=== PATIENT | male | born 2000 | race Caucasian/White ===

== ENCOUNTER 2024-03-28 08:56 | Emergency (ER) | payer SELFPAY ==
[~2024-03-28] VITALS: Ht 175.3 cm; Wt 100.0 kg
[~2024-03-28 08:56] MED LIST: AMOXICILLI250 MG/5 M PO; NO HOME MEDICATIONS
[2024-03-28 09:07] VITALS: TEMP 98.1
[2024-03-28] MEDS ORDERED: Ondansetron 4 MG/2 ML VIAL IV ONE (09:15)
[2024-03-28] MEDS ORDERED: NS 1,000 ML IV ONE (09:15)
[2024-03-28] MEDS ORDERED: fentaNYL 50 MCG/ML 2 ML VIAL IV ONE (09:30)
[2024-03-28] MEDS ORDERED: Ketorolac 30 MG/ML VIAL IV ONE (09:30)
[2024-03-28 09:39] LABS: BASO % 0.2 % (0.0-2.0); GRAN # 14.7 K/mm3 (1.4-6.5); GRAN % 88.5 % (42.2-75.2); HEMATOCRIT 48.5 % (42.0-52.0); HEMOGLOBIN 17.3 g/dl (13.5-18.0); LYMPH % 5.7 % (20.0-51.0); MEAN CELL VOLUME 84 fl (80.0-100.0); MEAN CORPUSCULAR HEMOGLOBIN 30 pg (27-31); MEAN CORPUSCULAR HGB CONC 36 g/dl (33.0-37.0); MEAN PLATELET VOLUME 12.3 fl (7.4-10.4); MONO # 0.9 K/mm3 (0.1-0.6); MONO % 5.1 % (1.7-9.3); PLATELET COUNT 253 K/mm3 (130-400); REDCELL DISTRIBUTION WIDTH-CV 12.9 % (11.5-14.5)
[2024-03-28 09:41] LABS: PH 8.5 (5.0-8.5); URINE APPEARANCE CLEAR (CLEAR/HAZY); URINE BLOOD NEGATIVE (NEGATIVE); URINE COLOR Dark Yellow (YELLOW); URINE GLUCOSE TRACE (NEGATIVE); URINE KETONE 4+ (NEGATIVE); URINE NITRATE NEGATIVE (NEGATIVE); URINE PROTEIN(semi-quant) 1+ (NEGATIVE)
[2024-03-28] MEDS ORDERED: NS 100 ML IV SCH (09:48)
[2024-03-28] MEDS ORDERED: Iohexol 300 - 100 ML VIAL IV ONE (09:48)
[2024-03-28 10:00] LABS: ALANINE AMINOTRANSFERASE 51 U/L (0-55); ALBUMIN 4.2 g/dL (3.5-5.0); ALKALINE PHOSPHATASE 85 U/L (40-150); ANION GAP 14 mmol/L (7-16); AST,SGOT 28 U/L (5-34); BILIRUBIN,TOTAL 1.3 mg/dL (0.2-1.2); BLOOD UREA NITROGEN 12 mg/dL (9-21); C-REACTIVE PROTEIN 0.77 mg/dL (0.00-0.50); CALCIUM 9.8 mg/dL (8.4-10.2); CHLORIDE 101 mEq/L (98-107); CREATININE, serum 0.91 mg/dL (0.72-1.25); GLUCOSE 128 mg/dL (70-99); POTASSIUM 3.4 mEq/L (3.5-4.5); SODIUM 136 mEq/L (136-145); TOTAL PROTEIN 7.3 g/dl (6.2-8.1)
[2024-03-28 10:01] LABS: LIPASE < 7 U/L (8-78)
[2024-03-28 10:03] LABS: COLLECTION METHOD CLEAN CATCH
[2024-03-28 13:02] VITALS: BP 121/84; PULSE 105
== END 2024-03-28 12:42 | disposition home or self-care (01) ==
LOC: COL.ER 08:56
PROVIDERS: Emergency Medicine
DX: K80.50 Calculus of bile duct without cholangitis or cholecystitis without obstruction (principal); F17.210 Nicotine dependence, cigarettes, uncomplicated; F17.290 Nicotine dependence, other tobacco product, uncomplicated; Z91.040 Latex allergy status
CPT/HCPCS: J1885; J2405; J3010; J7030; Q9967